=== PATIENT | female | born 1945 | race Caucasian/White ===

== ENCOUNTER → 2017-01-18 | Outpatient (CLI) | payer MEDICARE, OTHER | END | disposition home or self-care (01) | LOC: GMAH 12:06 | PROVIDERS: ATTEND Family Medicine | DX: E83.110 Hereditary hemochromatosis (principal) ==

== ENCOUNTER → 2017-03-08 | Outpatient (CLI) | payer MEDICARE, OTHER | END | disposition home or self-care (01) | LOC: GMAH 14:48 | PROVIDERS: ATTEND Family Medicine | DX: E83.110 Hereditary hemochromatosis (principal) ==

== ENCOUNTER → 2017-04-07 | Outpatient (CLI) | payer MEDICARE, OTHER ==
--- NOTE | 2017-04-07 14:56 | MAM ---
History: Well woman exam. Date of exam: 04/07/2017 Services provided: Bilateral full field digital screening mammography. CAD, the images were reviewed with R2 computer aided detection. FINDINGS: Glandular tissue is scattered nodular contour with increased mammographic density. Comparison with 2010 exam. No dominant mass, architectural distortion or clustered microcalcification. IMPRESSION: Benign exam Recommendation: Routine annual mammography BIRAD CATEGORY: 2 BENIGN Electronically signed by: Christiane Dickey MD 04/07/2017 2:55 PM CDT
== END | disposition home or self-care (01) ==
LOC: MAMMO 11:03
PROVIDERS: ATTEND Family Medicine
DX: Z12.31 Encounter for screening mammogram for malignant neoplasm of breast (principal)

== ENCOUNTER → 2017-06-15 | Outpatient (CLI) | payer MEDICARE, OTHER | END | disposition home or self-care (01) | LOC: LAB.O 10:45 | PROVIDERS: ATTEND Family Medicine | DX: E03.9 Hypothyroidism, unspecified (principal) ==

== ENCOUNTER → 2017-08-12 | Outpatient (CLI) | payer MEDICARE, OTHER | END | disposition home or self-care (01) | LOC: LAB.O 12:41 | PROVIDERS: ATTEND Nurse Practitioner Family | DX: E83.110 Hereditary hemochromatosis (principal) ==

== ENCOUNTER → 2017-09-01 | Outpatient (CLI) | payer MEDICARE, OTHER | END | disposition home or self-care (01) | LOC: LAB.O 10:55 | PROVIDERS: ATTEND Internal Medicine Medical Oncology | DX: E83.110 Hereditary hemochromatosis (principal) ==

== ENCOUNTER → 2017-10-09 | Outpatient (CLI) | payer MEDICARE, OTHER | END | disposition home or self-care (01) | LOC: GMAH 11:21 | PROVIDERS: ATTEND Family Medicine | DX: E83.118 Other hemochromatosis (principal) ==

== ENCOUNTER → 2018-03-29 | Outpatient (CLI) | payer OTHER | LOC: GMAH 11:13 | PROVIDERS: ATTEND Family Medicine | DX: E83.118 Other hemochromatosis (principal) ==

== ENCOUNTER → 2018-06-28 | Outpatient (CLI) | payer OTHER | LOC: GMAH 10:12 | PROVIDERS: ATTEND Family Medicine | DX: E83.118 Other hemochromatosis (principal); E03.9 Hypothyroidism, unspecified; E78.2 Mixed hyperlipidemia; I10 Essential (primary) hypertension ==

== ENCOUNTER → 2018-08-08 | Outpatient (CLI) | payer OTHER | LOC: GMAH 14:58 | PROVIDERS: ATTEND Family Medicine | DX: I10 Essential (primary) hypertension (principal); D64.9 Anemia, unspecified; E83.118 Other hemochromatosis ==

== ENCOUNTER → 2018-09-07 | Outpatient (CLI) | payer OTHER | LOC: GMAH 14:20 | PROVIDERS: ATTEND Family Medicine | DX: D64.9 Anemia, unspecified (principal); E83.118 Other hemochromatosis; E53.8 Deficiency of other specified B group vitamins ==

== ENCOUNTER → 2019-06-05 | Outpatient (CLI) | payer OTHER | LOC: GMAH 10:38 | PROVIDERS: ATTEND Family Medicine | DX: E83.118 Other hemochromatosis (principal); I10 Essential (primary) hypertension ==

== ENCOUNTER → 2019-07-01 | Outpatient (CLI) | payer OTHER | LOC: GMA MATASK 19:10 | PROVIDERS: ATTEND Family Medicine | DX: E03.9 Hypothyroidism, unspecified (principal); I10 Essential (primary) hypertension ==

== ENCOUNTER → 2019-09-10 | Outpatient (CLI) | payer OTHER | LOC: GMA MATASK 10:33 | PROVIDERS: ATTEND Family Medicine | DX: E83.110 Hereditary hemochromatosis (principal); E53.8 Deficiency of other specified B group vitamins; D64.9 Anemia, unspecified; E03.9 Hypothyroidism, unspecified ==

== ENCOUNTER → 2019-11-26 | Outpatient (CLI) | payer OTHER | LOC: GMA MATASK 10:50 | PROVIDERS: ATTEND Family Medicine | DX: D64.9 Anemia, unspecified (principal); E03.9 Hypothyroidism, unspecified; E78.2 Mixed hyperlipidemia ==